=== PATIENT | female | born 1945 | race Hispanic/Latino ===

== ENCOUNTER → 2017-12-10 | Outpatient (CLI) | payer OTHER ==
[~2017-12-10] MED LIST: ACET-2123 PO; AEC81 PO; CHOL200074 PO; CLON0.5T12 PO; DICL100T5 PO; DULO20CA17 PO; GABA-529 PO; HYDR-4068 PO; IOPAMIDOL-370 75 ML VIAL IV ONE; LANS30CA55 PO; LOSA50TA37 PO; LUBI24CA2 PO; PANT40TA25 PO; RANI300T4 PO; ROSU20TA PO; SIME180C46 PO; SUCR1TAB28 PO; TRAZ-185 PO; VITA100012 PO
== END | disposition home or self-care (01) ==
LOC: OIH 13:32
PROVIDERS: ATTEND Internal Medicine Gastroenterology
DX: K57.30 Diverticulosis of large intestine without perforation or abscess without bleeding (principal); N13.30 Unspecified hydronephrosis; N13.4 Hydroureter
CPT/HCPCS: 74178; Q9967

== ENCOUNTER 2017-12-31 09:42 | Day surgery (SDC) | payer OTHER ==
[~2017-12-31] VITALS: Ht 157.5 cm; Wt 59.6 kg
[~2017-12-31 09:42] MED LIST changes: -ACET-2123 PO; -GABA-529 PO; -IOPAMIDOL-370 75 ML VIAL IV ONE; -LANS30CA55 PO; -PANT40TA25 PO; -RANI300T4 PO; +SODIUM CHLORIDE 0.9% 1000ML 1,000 ML IV ONE; -SUCR1TAB28 PO
[2017-12-31] MEDS ORDERED: LANS30CA55 PO (11:19)
[2017-12-31] MEDS ORDERED: GABA-529 PO (11:19)
[2017-12-31] MEDS ORDERED: ACET-2123 PO (11:19)
[2017-12-31] MEDS ORDERED: RANI300T4 PO (11:19)
[2017-12-31] MEDS ORDERED: PANT40TA25 PO (11:19)
[2017-12-31] MEDS ORDERED: SUCR1TAB28 PO (11:19)
[2017-12-31] MEDS ORDERED: PROPOFOL 10 MG/ML 20ML VIAL IV ONE ×2 (11:34→11:47)
[2017-12-31] MEDS ORDERED: FENTANYL CITRATE PF 50 MCG/1 ML 2ML VIAL ONE (11:46)
[2017-12-31 11:57] VITALS: BP 94/37
[2017-12-31 12:17] VITALS: BP 124/59
== END 2017-12-31 12:30 ==
LOC: DAH 09:42 → ENDO 09:42
PROVIDERS: ATTEND Internal Medicine Gastroenterology
DX: K52.9 Noninfective gastroenteritis and colitis, unspecified (principal); K57.30 Diverticulosis of large intestine without perforation or abscess without bleeding; K63.89 Other specified diseases of intestine; K27.9 Peptic ulcer, site unspecified, unspecified as acute or chronic, without hemorrhage or perforation; E78.5 Hyperlipidemia, unspecified; I10 Essential (primary) hypertension; I25.10 Atherosclerotic heart disease of native coronary artery without angina pectoris; Z79.899 Other long term (current) drug therapy; Z80.0 Family history of malignant neoplasm of digestive organs; I72.8 Aneurysm of other specified arteries
CPT/HCPCS: 45378; 93005; A4606; J2704 ×2; J3010; J7030

== ENCOUNTER 2018-02-05 00:10 | Emergency (ER) | payer OTHER ==
[~2018-02-05 00:10] MED LIST changes: +ACET-2123 PO; -CHOL200074 PO; -CLON0.5T12 PO; +GABA-529 PO; -HYDR-4068 PO; +LANS30CA55 PO; +PANT40TA25 PO; +RANI300T4 PO; -SODIUM CHLORIDE 0.9% 1000ML 1,000 ML IV ONE; +SUCR1TAB28 PO
[2018-02-05 00:35] LABS: BASOPHILS % (AUTO) 0.4 % (0.0-5.0); LYMPHOCYTES % (AUTO) 31.2 % (21.0-51.0); MEAN CORPUSCULAR HEMOGLOBIN 31.2 pg (27.0-33.0); MEAN CORPUSCULAR HGB CONC 34.6 g/dL (32.0-36.0); MEAN CORPUSCULAR VOLUME 90.3 fL (79-99); MONOCYTES % (AUTO) 9.4 % (3.0-13.0); PLATELET COUNT (AUTO) 220 K/uL (130-400); RED BLOOD CELL COUNT(AUTO) 3.87 MIL/uL (4.00-5.50); RED CELL DISTRIBUTION WIDTH 13.3 % (11.0-15.5); WHITE BLOOD COUNT (AUTO) 6.7 K/uL (4.8-10.8)
[2018-02-05 00:45] LABS: CREATININE 0.8 mg/dL (0.5-1.5); POTASSIUM 3.9 mmol/L (3.5-5.1)
[2018-02-05 00:46] LABS: INR 0.94 (0.85-1.15); PARTIAL THROMBOPLASTIN TIME 24.6 SEC (26.3-35.5); PROTHROMBIN TIME 9.9 SEC (9.6-11.6)
[2018-02-05 00:59] LABS: ALBUMIN 3.6 g/dL (3.5-5.0); BILIRUBIN,TOTAL 0.2 mg/dL (0.2-1.0); CREATINE KINASE MB 1.1 ng/mL (0.5-3.6); TOTAL PROTEIN, SERUM 6.8 g/dL (6.0-8.3)
[2018-02-05] MEDS ORDERED: ONDANSETRON HCL 4 MG/2 ML VIAL ONE (01:02)
[2018-02-05] MEDS ORDERED: MORPHINE SULFATE 4 MG/1ML SYG ONE (01:03)
== END 2018-02-05 05:38 | disposition home or self-care (01) ==
LOC: EDH 00:10
DX: R07.89 Other chest pain (principal); R51 Headache; K57.90 Diverticulosis of intestine, part unspecified, without perforation or abscess without bleeding; I25.10 Atherosclerotic heart disease of native coronary artery without angina pectoris; E78.5 Hyperlipidemia, unspecified; M81.0 Age-related osteoporosis without current pathological fracture; M19.90 Unspecified osteoarthritis, unspecified site; Z90.710 Acquired absence of both cervix and uterus; Z90.49 Acquired absence of other specified parts of digestive tract
CPT/HCPCS: 36415; 70450; 71045; 74176; 80053; 82550; 82553; 83874; 84484 ×2; 85025; 85610; 85730; 93005 ×2; 94761; 96374; 96375; 99285; J2270; J2405

== ENCOUNTER → 2018-11-30 | Outpatient (CLI) | payer OTHER ==
[~2018-11-30] MED LIST changes: -DICL100T5 PO; +DICL100T85 PO; -LOSA50TA37 PO; +LOSA50TA64 PO; -ROSU20TA PO; +ROSU20TA23 PO
== END | disposition home or self-care (01) ==
LOC: RAH 15:11
PROVIDERS: ATTEND Family Medicine
DX: Z12.31 Encounter for screening mammogram for malignant neoplasm of breast (principal)
CPT/HCPCS: 77067

== ENCOUNTER → 2019-04-13 | Outpatient (CLI) | payer OTHER ==
[~2019-04-13] MED LIST changes: -DULO20CA17 PO; +DULO20CA18 PO
== END | disposition home or self-care (01) ==
LOC: RAH 10:54
PROVIDERS: ATTEND Family Medicine
DX: N64.4 Mastodynia (principal); N63.20 Unspecified lump in the left breast, unspecified quadrant
CPT/HCPCS: 76641; 77066

== ENCOUNTER 2020-07-27 01:15 | Inpatient (IN) | payer OTHER ==
[~2020-07-27] VITALS: Ht 160 cm; Wt 62.8 kg
[~2020-07-27 01:15] MED LIST changes: -PANT40TA25 PO; +PANT40TA54 PO
[2020-07-27 02:04] LABS: BASOPHILS % (AUTO) 0.2 % (0.0-5.0); EOSINOPHILS % (AUTO) 0.2 % (0.0-8.0); HEMATOCRIT 38.3 % (36-48); LYMPHOCYTES % (AUTO) 11.8 % (21.0-51.0); MEAN CORPUSCULAR HEMOGLOBIN 30.1 pg (27.0-33.0); MEAN CORPUSCULAR HGB CONC 33.7 g/dL (32.0-36.0); MEAN CORPUSCULAR VOLUME 89.5 fL (79-99); MONOCYTES % (AUTO) 5.6 % (3.0-13.0); NEUTROPHILS % (AUTO) 81.7 % (40.0-77.0); PLATELET COUNT (AUTO) 249 K/uL (130-400); RED BLOOD CELL COUNT(AUTO) 4.28 MIL/uL (4.00-5.50); WHITE BLOOD COUNT (AUTO) 16.6 K/uL (4.8-10.8)
[2020-07-27] MEDS ORDERED: FENTANYL CITRATE PF 50 MCG/1 ML 2ML VIAL ONE ×3 (02:05→04:13)
[2020-07-27 02:17] LABS: CREATININE 0.9 mg/dL (0.5-1.5); POTASSIUM 3.6 mmol/L (3.5-5.1)
[2020-07-27 02:21] LABS: ALBUMIN 4.1 g/dL (3.5-5.0); BILIRUBIN,TOTAL 0.5 mg/dL (0.2-1.0); TOTAL PROTEIN, SERUM 7.4 g/dL (6.0-8.3)
[2020-07-27] MEDS ORDERED: METRONIDAZOLE 500MG/100ML BAG 100 ML ONE ×2 (04:12→14:05)
[2020-07-27] MEDS ORDERED: LEVOFLOXACIN 500 MG/D5W 100 ML 100 ML ONE (04:12)
[2020-07-27 04:13] LABS: APPEARANCE,URINE Clear (CLEAR); BILIRUBIN,URINE Negative (NEGATIVE); COLOR,URINE Yellow (YELLOW); GLUCOSE, URINE (UA) Negative (NEGATIVE); KETONES,URINE Negative (NEGATIVE); LEUKOCYTE ESTERASE ,URINE Small (NEGATIVE); NITRATE,URINE Negative (NEGATIVE); OCCULT BLOOD,URINE Trace (NEGATIVE); PROTEIN,URINE Negative (NEGATIVE)
[2020-07-27 04:25] LABS: BACTERIA,URINE None Seen /HPF (None Seen); MUCUS,URINE Rare LPF (None Seen); RBC,URINE 0-1 /HPF (0-1); SQUAMOUS EPITHELIAL CELL,UR Rare /HPF (0-2); WBC,URINE 0-1 /HPF (0-1)
[2020-07-27] MEDS: LEVOFLOXACIN 500 MG/D5W 100 ML 100 ML IV SCH (05:00)
[2020-07-27] MEDS ORDERED: DiphenhydrAMINE HCL 50 MG/ML VIAL IV PRN (05:00)
[2020-07-27] MEDS: LACTATED RINGERS 1000ML 1,000 ML IV SCH ×3 (05:00→23:28)
[2020-07-27] MEDS ORDERED: MORPHINE SULFATE 2 MG/ML 1ML SYG IV PRN (05:00)
[2020-07-27 05:22] LABS: HEMOGLOBIN A1C 6.1 % (4.0-6.0)
[2020-07-27] MEDS: METRONIDAZOLE 500MG/100ML BAG 100 ML IVPB SCH ×3 (06:00→20:36)
[2020-07-27] MEDS ORDERED: FAMOTIDINE/PF 20 MG/2 ML VIAL IV ONE (08:02)
[2020-07-27] MEDS: FAMOTIDINE/PF 20 MG/2 ML VIAL IV SCH ×2 (09:00→20:36)
[2020-07-27] MEDS ORDERED: ONDANSETRON HCL 4 MG/2 ML VIAL ONE (10:55)
[2020-07-27] MEDS ORDERED: MORPHINE SULFATE 2 MG/ML 1ML SYG ONE (10:55)
[2020-07-27 15:00] VITALS: BP 144/73
--- NOTE | 2020-07-27 16:11 | NUR ---
DR. WORTHINGTON MADE AWARE OF CONSULT, REPORTS UNDERSTANDING.
--- NOTE | 2020-07-27 16:38 | NUR ---
cm note met with patient and states resides at home with spouse, independent with ambulation, but has been weaker lately, no provider, no services, dc [place]. spouse currently assists as needed for adls. and transport. interested in provider services, but provided [facility] she requested i make referral. call made to [facility] and left vmmariano , for followup with pt. for possible provider services. Addendum: 07/27/20 at 1644 by HARRY AVALOS CM Amended: Links added.
[2020-07-27 19:52] VITALS: BP 127/60
[2020-07-27 23:20] VITALS: BP 113/54
[2020-07-28 03:10] VITALS: BP 118/56
[2020-07-28] MEDS: LEVOFLOXACIN 500 MG/D5W 100 ML 100 ML IV SCH (04:05)
[2020-07-28 05:08] LABS: BASOPHILS % (AUTO) 0.2 % (0.0-5.0); EOSINOPHILS % (AUTO) 0.1 % (0.0-8.0); HEMATOCRIT 32.8 % (36-48); MEAN CORPUSCULAR HEMOGLOBIN 29.9 pg (27.0-33.0); MEAN CORPUSCULAR HGB CONC 32.9 g/dL (32.0-36.0); MEAN CORPUSCULAR VOLUME 90.9 fL (79-99); MONOCYTES % (AUTO) 4.8 % (3.0-13.0); NEUTROPHILS % (AUTO) 84.6 % (40.0-77.0); PLATELET COUNT (AUTO) 191 K/uL (130-400); RED BLOOD CELL COUNT(AUTO) 3.61 MIL/uL (4.00-5.50); RED CELL DISTRIBUTION WIDTH 12.1 % (11.0-15.5); WHITE BLOOD COUNT (AUTO) 11.9 K/uL (4.8-10.8)
[2020-07-28] MEDS: METRONIDAZOLE 500MG/100ML BAG 100 ML IVPB SCH ×3 (05:12→22:31)
[2020-07-28 05:21] LABS: CREATININE 0.9 mg/dL (0.5-1.5); POTASSIUM 3.5 mmol/L (3.5-5.1)
[2020-07-28] MEDS: HYDROMORPHONE HCL 0.5 MG/0.5 ML ML IVP PRN ×3 (05:26→15:49)
[2020-07-28] MEDS: ONDANSETRON HCL 4 MG/2 ML VIAL IV PRN ×2 (06:37→10:11)
[2020-07-28 08:07] VITALS: BP 108/58
[2020-07-28] MEDS: FAMOTIDINE/PF 20 MG/2 ML VIAL IV SCH ×2 (10:10→22:31)
[2020-07-28] MEDS ORDERED: POTASSIUM CHLORIDE 10MEQ/100ML 100 ML IV ONE (10:28)
[2020-07-28] MEDS: LACTATED RINGERS 1000ML 1,000 ML IV SCH ×2 (11:00→22:31)
[2020-07-28] MEDS ORDERED: POTASSIUM CHLORIDE 20MEQ/100ML 100 ML IV PRN (11:00)
[2020-07-28] MEDS ORDERED: KETOROLAC TROMETHAMINE 15MG/ML IM PRN (11:00)
[2020-07-28] MEDS ORDERED: LIDOCAINE HCL-MPF 1% 2ML VIAL IV PRN (11:00)
[2020-07-28] MEDS ORDERED: POTASSIUM CHLORIDE 20 MEQ ERTAB PO ONE (11:46)
[2020-07-28 12:22] VITALS: BP 124/60
[2020-07-28] MEDS ORDERED: KETOROLAC TROMETHAMINE 30MG/ML ONE (13:37)
[2020-07-28 16:00] VITALS: BP 125/75
[2020-07-28 20:47] VITALS: BP 121/49
[2020-07-28 23:59] VITALS: BP 122/54
[2020-07-29 04:00] VITALS: BP 106/58
[2020-07-29 04:53] LABS: BASOPHILS % (AUTO) 0.1 % (0.0-5.0); EOSINOPHILS % (AUTO) 0.6 % (0.0-8.0); HEMATOCRIT 31.1 % (36-48); LYMPHOCYTES % (AUTO) 12.5 % (21.0-51.0); MEAN CORPUSCULAR HEMOGLOBIN 29.8 pg (27.0-33.0); MEAN CORPUSCULAR HGB CONC 33.1 g/dL (32.0-36.0); MEAN CORPUSCULAR VOLUME 89.9 fL (79-99); MONOCYTES % (AUTO) 4.9 % (3.0-13.0); NEUTROPHILS % (AUTO) 81.6 % (40.0-77.0); PLATELET COUNT (AUTO) 162 K/uL (130-400); RED BLOOD CELL COUNT(AUTO) 3.46 MIL/uL (4.00-5.50); RED CELL DISTRIBUTION WIDTH 12.2 % (11.0-15.5); WHITE BLOOD COUNT (AUTO) 9.7 K/uL (4.8-10.8)
[2020-07-29] MEDS: METRONIDAZOLE 500MG/100ML BAG 100 ML IVPB SCH ×3 (05:30→22:27)
[2020-07-29] MEDS: LEVOFLOXACIN 500 MG/D5W 100 ML 100 ML IV SCH (05:30)
[2020-07-29 05:32] LABS: ALBUMIN 2.7 g/dL (3.5-5.0); BILIRUBIN,TOTAL 0.6 mg/dL (0.2-1.0); CREATININE 0.8 mg/dL (0.5-1.5); MAGNESIUM 2.3 mg/dL (1.80-2.40); PHOSPHORUS 2.2 mg/dL (2.5-4.9); POTASSIUM 3.6 mmol/L (3.5-5.1); TOTAL PROTEIN, SERUM 5.9 g/dL (6.0-8.3)
[2020-07-29] MEDS: LACTATED RINGERS 1000ML 1,000 ML IV SCH ×2 (07:00→17:15)
[2020-07-29 08:00] VITALS: BP 118/60
[2020-07-29] MEDS: FAMOTIDINE/PF 20 MG/2 ML VIAL IV SCH ×2 (09:22→22:27)
--- NOTE | 2020-07-29 09:31 | NUR ---
C/BHAVYA LOW PELVIC PAIN.
[2020-07-29] MEDS: MORPHINE SULFATE 2 MG/ML 1ML SYG IV PRN (09:38)
--- NOTE | 2020-07-29 09:44 | NUR ---
MEDICATED FOR PAIN NOW.
[2020-07-29] MEDS ORDERED: DICYCLOMINE HCL 20 MG TAB PO PRN (10:15)
[2020-07-29 12:00] VITALS: BP 117/62
[2020-07-29 16:00] VITALS: BP 134/59
--- NOTE | 2020-07-29 17:30 | NUR ---
NEW IV START, 20G. LT. INNER FOREARM. FLAGYL STARTED
[2020-07-29 20:37] VITALS: BP 142/52
[2020-07-29] MEDS ORDERED: POTASSIUM CHLORIDE 20 MEQ ERTAB PO PRN (22:30)
[2020-07-29] MEDS ORDERED: LIDOCAINE HCL-MPF 1% 2ML VIAL IV PRN (22:30)
[2020-07-29] MEDS ORDERED: POTASSIUM CHLORIDE 20MEQ/100ML 100 ML IV PRN (22:30)
--- NOTE | 2020-07-29 22:40 | NUR ---
REPORT RECEIVED FROM BAO MCDONALD. PATIENT MOVED FROM ROOM 323 TO ROOM 318 WITH A SITTER (MITRA) DUE TO CONFUSION AND GETTING OUT OF BED CONSTANTLY. PATIENT IS IN BED AND TRYING TO GO TO SLEEP. WILL CONTINUE ANTIBIOTICS AND IV FLUIDS TONIGHT.
[2020-07-30] VITALS: BP 137/63
[2020-07-30] MEDS: POTASSIUM CHLORIDE 10% ELIXIR 20 MEQ/15 ML UDCUP PO PRN ×3 (03:32→15:02)
[2020-07-30] MEDS: LEVOFLOXACIN 500 MG/D5W 100 ML 100 ML IV SCH (03:32)
[2020-07-30 04:00] VITALS: BP 116/67
[2020-07-30 04:20] LABS: BASOPHILS % (AUTO) 0.2 % (0.0-5.0); EOSINOPHILS % (AUTO) 0.5 % (0.0-8.0); HEMATOCRIT 33.6 % (36-48); LYMPHOCYTES % (AUTO) 14.3 % (21.0-51.0); MEAN CORPUSCULAR HEMOGLOBIN 30.1 pg (27.0-33.0); MEAN CORPUSCULAR HGB CONC 33.6 g/dL (32.0-36.0); MEAN CORPUSCULAR VOLUME 89.6 fL (79-99); MONOCYTES % (AUTO) 6.4 % (3.0-13.0); NEUTROPHILS % (AUTO) 78.2 % (40.0-77.0); PLATELET COUNT (AUTO) 202 K/uL (130-400); RED BLOOD CELL COUNT(AUTO) 3.75 MIL/uL (4.00-5.50); WHITE BLOOD COUNT (AUTO) 10.1 K/uL (4.8-10.8)
[2020-07-30 04:35] LABS: ALBUMIN 2.8 g/dL (3.5-5.0); BILIRUBIN,TOTAL 0.7 mg/dL (0.2-1.0); CREATININE 0.8 mg/dL (0.5-1.5); MAGNESIUM 1.7 mg/dL (1.80-2.40); PHOSPHORUS 3.1 mg/dL (2.5-4.9); POTASSIUM 3.2 mmol/L (3.5-5.1); TOTAL PROTEIN, SERUM 6.6 g/dL (6.0-8.3)
[2020-07-30] MEDS ORDERED: MAGNESIUM 2GM PREMIX 50ML 50 ML IV PRN ×2 (05:00→15:15)
[2020-07-30] MEDS ORDERED: MAGNESIUM 2GM PREMIX 50ML 50 ML IV ONE (05:06)
[2020-07-30] MEDS: METRONIDAZOLE 500MG/100ML BAG 100 ML IVPB SCH (05:07)
[2020-07-30] MEDS: FAMOTIDINE/PF 20 MG/2 ML VIAL IV SCH ×2 (09:07→19:38)
[2020-07-30 10:20] VITALS: BP 120/68
[2020-07-30 11:10] VITALS: BP 160/67
[2020-07-30] MEDS: LACTATED RINGERS 1000ML 1,000 ML IV SCH ×3 (13:00→22:49)
[2020-07-30] MEDS: ZOSYN 3.375GM+NS 50ML 50 ML IV SCH ×2 (14:58→19:38)
[2020-07-30] MEDS: MORPHINE SULFATE 2 MG/ML 1ML SYG IV PRN (15:06)
[2020-07-30] MEDS ORDERED: LIDOCAINE HCL-MPF 1% 2ML VIAL IV PRN (15:15)
[2020-07-30] MEDS ORDERED: POTASSIUM CHLORIDE 20MEQ/100ML 100 ML IV PRN (15:15)
[2020-07-30] MEDS ORDERED: BISACODYL 10 MG SUPP.RECT RC SCH (19:15)
[2020-07-30 21:53] VITALS: BP 152/78
--- NOTE | 2020-07-30 22:20 | NUR ---
PATIENT VERY WELL BEHAVED ORIENTED TIMES PERSON AND PLACE. I GAVE HER A SUPPOSITORY AND SOME PRUNE JUICE TO STIMULATE HER BOWELS. SHE HAD A SMALL BOWEL MOVEMENT RIGHT NOW. WILL CONTINUE TO MONITOR
--- NOTE | 2020-07-31 02:00 | NUR ---
NOTE ASSIGNMENT CHANGE PER [employer]. RECEIVED REPORT FROM GONZALEZ JANE RN. AND WILL BE TAKING OVER CARE OF PATIENT. AT THIS TIME SHE HAS A SITTER AT BEDSIDE AND IS RESTING WITH EYES CLOSED. NO DISTRESS NOTED.
[2020-07-31 02:07] VITALS: BP 148/74
[2020-07-31] MEDS: ZOSYN 3.375GM+NS 50ML 50 ML IV SCH ×4 (04:57→21:11)
[2020-07-31 06:14] LABS: HEMATOCRIT 34.4 % (36-48); MEAN CORPUSCULAR HEMOGLOBIN 29.9 pg (27.0-33.0); MEAN CORPUSCULAR HGB CONC 33.4 g/dL (32.0-36.0); MEAN CORPUSCULAR VOLUME 89.6 fL (79-99); PLATELET COUNT (AUTO) 232 K/uL (130-400); RED BLOOD CELL COUNT(AUTO) 3.84 MIL/uL (4.00-5.50); RED CELL DISTRIBUTION WIDTH 12.1 % (11.0-15.5)
[2020-07-31 06:24] LABS: BILIRUBIN,TOTAL 0.5 mg/dL (0.2-1.0); CREATININE 0.8 mg/dL (0.5-1.5); MAGNESIUM 2.2 mg/dL (1.80-2.40); POTASSIUM 4.2 mmol/L (3.5-5.1); TOTAL PROTEIN, SERUM 6.5 g/dL (6.0-8.3)
[2020-07-31 06:40] VITALS: BP 124/61
[2020-07-31 07:09] LABS: BASOPHILS % (MANUAL) 1 % (0-2); LYMPHOCYTES % (MANUAL) 20 % (22-44); MONOCYTES % (MANUAL) 2 % (2-9); SEGMENTED NEUTROPHILS % 77 % (40-70)
[2020-07-31 07:10] LABS: MAN.DIFF COMMENT-IMPRESSION MANUAL DIFFERENTIAL; PLATELET MORPHOLOGY COMMENT ADEQUATE
[2020-07-31] MEDS: LACTATED RINGERS 1000ML 1,000 ML IV SCH ×2 (07:24→16:07)
[2020-07-31 08:48] VITALS: BP 147/78
[2020-07-31] MEDS ORDERED: AMOX-426 PO (09:00)
[2020-07-31] MEDS: FAMOTIDINE/PF 20 MG/2 ML VIAL IV SCH ×2 (09:46→21:11)
[2020-07-31 11:23] VITALS: BP 127/86
[2020-07-31] MEDS: MORPHINE SULFATE 2 MG/ML 1ML SYG IV PRN (15:17)
[2020-07-31 17:21] VITALS: BP 144/64
[2020-07-31 19:46] VITALS: BP 140/64
[2020-08-01 00:59] VITALS: BP 126/65
[2020-08-01] MEDS: LACTATED RINGERS 1000ML 1,000 ML IV SCH (03:12)
[2020-08-01 05:24] VITALS: BP 153/74
[2020-08-01] MEDS: ZOSYN 3.375GM+NS 50ML 50 ML IV SCH ×2 (07:52→13:16)
[2020-08-01 08:00] VITALS: BP 130/68
[2020-08-01] MEDS: FAMOTIDINE/PF 20 MG/2 ML VIAL IV SCH (10:11)
[2020-08-01 12:04] VITALS: BP 126/60
--- NOTE | 2020-08-02 11:21 | NUR ---
Transitional Care - Post Discharge Note Spoke with patient's spouse at number listed. As per Mr Elizabeth, the patient is doing well. He states the patient has a follow up with her PCP August 06, an appointment with Dr Webster on the , and is taking discharge medications as ordered. Addendum: 08/02/20 at 1124 by KHURRAM PLEITEZ Amended: Links added.
== END 2020-08-01 13:30 | disposition home or self-care (01) | DRG 392 ==
LOC: EDH 01:15 → EDHIP 04:51 → OBSVTOIN 04:51 → 3DH 14:57 → 3CH 07-29 22:18
PROVIDERS: ADMIT Internal Medicine Critical Care Medicine; ATTEND Internal Medicine Critical Care Medicine
DX: K57.20 Diverticulitis of large intestine with perforation and abscess without bleeding (principal); I10 Essential (primary) hypertension; M81.0 Age-related osteoporosis without current pathological fracture; M19.90 Unspecified osteoarthritis, unspecified site; I25.10 Atherosclerotic heart disease of native coronary artery without angina pectoris; Z82.49 Family history of ischemic heart disease and other diseases of the circulatory system; Z83.3 Family history of diabetes mellitus; Z80.51 Family history of malignant neoplasm of kidney; Z80.9 Family history of malignant neoplasm, unspecified; Z79.82 Long term (current) use of aspirin; Z79.899 Other long term (current) drug therapy
CPT/HCPCS: 36415; 74176; 80048; 80053; 81001; 83036; 83605; 83690; 83735; 84100; 84484; 85025; 93005; G0378; J1170; J1885; J1956; J2405; J2543; J3010; J3475; J3490; J7120

== ENCOUNTER 2020-08-23 03:24 | Emergency (ER) | payer OTHER ==
[~2020-08-23 03:24] MED LIST changes: -ACET-2123 PO; +AMOX-426 PO; -DICL100T85 PO; -LANS30CA55 PO; -LUBI24CA2 PO; -PANT40TA54 PO; -RANI300T4 PO; -SIME180C46 PO; -SUCR1TAB28 PO; -TRAZ-185 PO; -VITA100012 PO
[2020-08-23 03:58] LABS: APPEARANCE,URINE CLEAR (CLEAR); BILIRUBIN,URINE SMALL (NEGATIVE); COLOR,URINE YELLOW (YELLOW); GLUCOSE, URINE (UA) NEGATIVE (NEGATIVE); KETONES,URINE 5 mg/dL (NEGATIVE); LEUKOCYTE ESTERASE ,URINE TRACE (NEGATIVE); NITRATE,URINE NEGATIVE (NEGATIVE); OCCULT BLOOD,URINE MODERATE (NEGATIVE); PROTEIN,URINE 30 mg/dL (NEGATIVE); UROBILINOGEN,URINE 0.2 mg/dL (0.2-1.0)
[2020-08-23 04:02] LABS: BACTERIA,URINE None Seen /HPF (None Seen); CALCIUM OXALATE CRYSTALS,UR Many /LPF (None Seen); SQUAMOUS EPITHELIAL CELL,UR Moderate /HPF (0-2)
[2020-08-23 04:02] LABS: BASOPHILS % (AUTO) 0.2 % (0.0-5.0); EOSINOPHILS % (AUTO) 1.3 % (0.0-8.0); LYMPHOCYTES % (AUTO) 17.5 % (21.0-51.0); MEAN CORPUSCULAR HEMOGLOBIN 30.4 pg (27.0-33.0); MEAN CORPUSCULAR HGB CONC 34.1 g/dL (32.0-36.0); MEAN CORPUSCULAR VOLUME 89.2 fL (79-99); MONOCYTES % (AUTO) 6.7 % (3.0-13.0); NEUTROPHILS % (AUTO) 73.9 % (40.0-77.0); PLATELET COUNT (AUTO) 204 K/uL (130-400); RED BLOOD CELL COUNT(AUTO) 4.15 MIL/uL (4.00-5.50); RED CELL DISTRIBUTION WIDTH 12.3 % (11.0-15.5)
[2020-08-23 04:10] LABS: POTASSIUM 3.7 mmol/L (3.5-5.1)
[2020-08-23 04:15] LABS: ALBUMIN 4.1 g/dL (3.5-5.0); BILIRUBIN,TOTAL 0.4 mg/dL (0.2-1.0); TOTAL PROTEIN, SERUM 7.7 g/dL (6.0-8.3)
[2020-08-23] MEDS ORDERED: SODIUM CHLORIDE 0.9% 500ML 500 ML IV ONE (04:27)
[2020-08-23] MEDS ORDERED: GLYCERIN PEDI SUPP.RECT PR ONE (05:28)
== END 2020-08-23 06:04 | disposition home or self-care (01) ==
LOC: EDH 03:24
DX: K59.00 Constipation, unspecified (principal); M19.90 Unspecified osteoarthritis, unspecified site; I25.10 Atherosclerotic heart disease of native coronary artery without angina pectoris; E78.5 Hyperlipidemia, unspecified; E86.0 Dehydration; I10 Essential (primary) hypertension; M81.0 Age-related osteoporosis without current pathological fracture
CPT/HCPCS: 36415; 74176; 80053; 81001; 85025; 96360; 99284; J7040

== ENCOUNTER → 2021-07-22 | Outpatient (CLI) | payer OTHER | END | disposition home or self-care (01) | LOC: OIH 14:38 | PROVIDERS: ATTEND Internal Medicine Cardiovascular Disease | DX: Z13.6 Encounter for screening for cardiovascular disorders (principal) | CPT/HCPCS: 75571 ==

== ENCOUNTER → 2023-01-04 | Outpatient (CLI) | payer OTHER | END | disposition home or self-care (01) | LOC: RAH 10:00 | PROVIDERS: ATTEND Family Medicine | DX: Z12.31 Encounter for screening mammogram for malignant neoplasm of breast (principal) | CPT/HCPCS: 77067 ==

== ENCOUNTER → 2024-01-06 | Outpatient (CLI) | payer OTHER | END | disposition home or self-care (01) | LOC: RAH 10:09 | PROVIDERS: ATTEND Family Medicine | DX: Z12.31 Encounter for screening mammogram for malignant neoplasm of breast (principal) | CPT/HCPCS: 77067 ==

== ENCOUNTER → 2025-01-08 | Outpatient (CLI) | payer OTHER ==
--- NOTE | 2025-01-08 10:24 | HMCIMG ---
Exam Type: MAMMO SCREENING BILATERAL Clinical Information: ANNUAL SCREENING Comparison: January 06, 2024 Technique: Mammogram with CAD was performed with CC and MLO projections. CAD shows no worrisome regions. FINDINGS: The breasts are heterogeneously dense, which may obscure small masses. No dominant mass or suspicious microcalcification identified. There is no nipple retraction or skin thickening. Benign-appearing calcifications are seen. CAD shows no worrisome regions. IMPRESSION: 1. No mammographic signs of malignancy. 2. Routine follow-up recommended. CATEGORY 2: BENIGN FINDINGS Note: A negative x-ray should not delay biopsy if a dominant or clinically suspicious mass is present, since 8-10% of cancers are not identified by mammography. Dense breasts may obscure an underlying neoplasm.
== END | disposition home or self-care (01) ==
LOC: RAH 08:54
PROVIDERS: ATTEND Family Medicine
DX: Z12.31 Encounter for screening mammogram for malignant neoplasm of breast (principal); R92.333 Mammographic heterogeneous density, bilateral breasts; R92.1 Mammographic calcification found on diagnostic imaging of breast
CPT/HCPCS: 77067

== ENCOUNTER → 2025-01-15 | Outpatient (CLI) | payer OTHER ==
[2025-01-15 22:53] VITALS: PULSE 64; RESP 12
[2025-01-15 23:28] VITALS: PULSE 66; RESP 18
[2025-01-16] VITALS (11 sets, daily range): PULSE 57–86; RESP 12–16
== END | disposition home or self-care (01) ==
LOC: SLP 20:26
PROVIDERS: ATTEND Internal Medicine Cardiovascular Disease
DX: G47.33 Obstructive sleep apnea (adult) (pediatric) (principal); R06.83 Snoring
CPT/HCPCS: 95810

== ENCOUNTER → 2025-01-30 | Outpatient (CLI) | payer OTHER ==
[2025-01-30 22:50] VITALS: PULSE 55; RESP 10
[2025-01-30 23:14] VITALS: PULSE 55; RESP 19
[2025-01-30 23:29] VITALS: PULSE 128; RESP 30
[2025-01-30 23:58] VITALS: PULSE 45; RESP 12
[2025-01-31] VITALS (11 sets, daily range): PULSE 45–97; RESP 9–22
== END | disposition home or self-care (01) ==
LOC: SLP 20:31
PROVIDERS: ATTEND Internal Medicine Cardiovascular Disease
DX: G47.33 Obstructive sleep apnea (adult) (pediatric) (principal); R06.83 Snoring
CPT/HCPCS: 95811